=== PATIENT | male | born 1955 | race Caucasian/White ===

== ENCOUNTER 2020-10-24 08:48 | Day surgery (SDC) | payer MEDICARE, SELFPAY ==
[2020-10-24 09:28] VITALS: BP 126/57; PULSE 53; RESP 16; TEMP 36.4; O2SAT 100
[2020-10-24] MEDS: Tetracaine 0.5% 4 ML BTL OD (10:39)
[2020-10-24] MEDS: Duovisc Viscoelastic System EACH 1 EACH (10:40)
[2020-10-24] MEDS: Balanced Salt Soln.-PLUS 500 ML BAG ×2 (10:40→10:41)
[2020-10-24] MEDS: Lidocaine 1% Pres-Free 5 ML VIAL (10:43)
[2020-10-24] MEDS: Lidocaine 2% Jelly 6 ML SYR (10:45)
[2020-10-24] MEDS: Povidone-Iodine Ophth 30 ML BTL (10:46)
--- NOTE | 2020-10-24 11:02 | W.PM.DSUDISC ---
Discharge Plan Disposition Patient Disposition: HOME Condition: Good Discharge Details Attending Provider: Miles Neves Primary Care Provider: Michael Dominguez Home Meds and New Rx's Prescriptions: No Action cyanocobalamin (vitamin B-12) [Vitamin B-12] 100 mcg Tablet 100 mcg PO DAILY RF: 0 omeprazole 40 mg capsule,delayed release(DR/EC) 40 mg PO DAILY RF: 0 acetaminophen 500 mg Tablet 500 mg PO Q6H PRNRF: 0 amiloride 5 mg tablet 5 mg PO DAILY RF: 0 propranolol 20 mg tablet 20 mg PO BID RF: 0 cholecalciferol (vitamin D3) [Vitamin D3] 25 mcg (1,000 unit) Tablet 25 mcg PO DAILY RF: 0 zoledronic jyfh-wmdbbqwn-expsf 5 mg/100 mL Piggyback See Rx Instructions .ROUTE .COMPLEX RF: 0 Discharge Instructions Stand Alone Forms: Post-op Topical Cataract, Meri Rodrigues (DSU) Discharge Orders Discharge Orders: Discharge Order (Routine); Ordered 10/24/20 Ordered By: Miles Neves DS: Diagnosis Discharge Diagnosis (1) Nuclear sclerotic cataract of right eye: Status: Resolved (2) Posterior subcapsular age-related cataract, right eye: Status: Resolved
--- NOTE | 2020-10-24 11:03 | W.PM.OP ---
Operative Note Operative Note DATE OF PROCEDURE: 10/24/20 PRE-OP DIAGNOSIS: Nuclear/posterior subcapsular cataract, right eye POST-OP DIAGNOSIS: same PROCEDURE: Cataract extraction using phacoemulsification with intraocular lens implant, right eye SURGEON: Miles Neves ANESTHESIA TYPE: Local By Surgeon and MAC Refer to Anesthesia Record ESTIMATED BLOOD LOSS: 0 PATHOLOGY: none sent COMPLICATIONS: None Patient was transported to: same day Patient's condition: stable Implants: Henrry and Henrry Vision / [employer] Tecnis [id number] intraocular lens Indications: Progressive decreased vision due to cataract, right eye Procedure Description: CATARACT SURGERY OPERATIVE REPORT PREOPERATIVE DIAGNOSIS: Nuclear/posterior subcapsular cataract, right eye POSTOPERATIVE DIAGNOSIS: Same OPERATION: Cataract extraction using phacoemulsification with posterior chamber intraocular lens implant, right eye. IOL: IOL Contaminated [employer] Consultant/Model: J&J Vision / JESSEE Tecnis ZCB00 IOL Power: + 14.5 diopters IOL Serial Number: [id number] Optic Diameter: 6.0mm Haptic/Overall Diameter: 13.0mm PHACO INFO: Jaswinder [employer] Vision System with OZil and Active Fluidics Cumulative Dispersed Energy (CDE): 5.36 seconds SURGEON: Miles Neves MD, ZOLTAN ANESTHESIA: Monitored Anesthesia Care (MAC), with local sub-tenon's anesthetic infiltration COMPLICATIONS: None SPECIMENS: None INDICATIONS FOR PROCEDURE: Patient is a 64-year-old gentleman with history of diminished visual acuity in his right eye secondary to development of nuclear and posterior subcapsular cataract. He is significantly symptomatic that he desires cataract surgery and attempt to improve and maximize his vision. PROCEDURE: The correct surgical eye was identified and marked as the right eye and the pupil was dilated in the preoperative area using mydriatics and cycloplegics. The dilated pupil size was 8.0 mm. Oral sedation was administered in the form of an Imprimis MKO Melt (midazolam 3mg/ketamine 25mg/ondansetron 2mg). The patient was brought to the operating room where cardiopulmonary monitoring was instituted and surgical time-out was performed, confirming the correct operative eye and IOL power. Topical anesthesia was administered and ophthalmic povidone-iodine 5% was instilled into the conjunctival fornices. Lidocaine gel was applied to the cornea and the santos-ocular area was prepped with Betadine 10% solution and draped in the usual sterile fashion for intraocular surgery, including an aperture drape. A Tegaderm transparent film dressing was cut in half and used to cover the lashes and lid margins. Care was taken to sequester the lashes and lid margins under the Tegaderm dressing. A lid speculum was placed between the lids of the operative eye and the Maya-Shanna operating microscope was maneuvered into position. Thanh scissors were then used to make a conjunctival buttonhole approximately 6mm posterior to the limbus in the inferonasal quadrant. Blunt dissection was carried out to expose bare sclera, and a blunt-tipped sub-tenon?s anesthesia cannula was introduced and passed posteriorly along the globe where non-preserved plain lidocaine was injected into posterior sub-Tenon?s space. A sideport knife was used to make a paracentesis port inferiortemporally. Intraocular phenylephrine/lidocaine was injected into the anterior chamber. The anterior chamber was then filled with viscoelastic. A 2.4mm keratome knife was used to create a half-thickness groove at the limbus and then to construct a three-plane near-clear corneal tunnel extending 2.0mm into clear cornea in the superiortemporal position. . A flap was raised on the anterior capsule and capsulorhexis forceps were used to complete a continuous curvilinear capsulorhexis of 5.5 mm. Balanced salt solution was then used to perform cortical cleaving hydrodissection and nuclear hydrodelineation until the lens could be freely rotated within the capsular bag. The lens nucleus was then disassembled and removed within the capsular bag and iris plane using phacoemulsification. Residual cortical material was removed using the I/A handpiece. The posterior capsule was carefully polished to remove as much residual lens epithelial cells as safely possible. The capsular bag was then inflated and the anterior chamber deepened with viscoelastic. The lens implant described above was inserted into the capsular bag using the JESSEE [place] Injector. A Kuglen hook was used to dial the IOL into position. Residual viscoelastic was then removed first from posterior to the IOL, then from the anterior chamber using the I/A handpiece. The lens implant was noted to center nicely within the capsular bag. The incisions were stromally hydrated, and the anterior chamber was reformed using BSS. Then 0.5cc of moxifloxacin 1.0mg/ml were injected into the capsular bag and anterior chamber. The incisions were checked with a Weck spear and found to be secure. Several drops of ophthalmic povidone-iodine 5% were then applied to the eye followed by two drops of Imprimis combination prednisolone/moxifloxacin/nepafenac solution. The drapes were removed and a clear plastic protective eye shield was placed over the eye. The patient was then returned to Same Day Surgery in stable condition.
[2020-10-24 11:29] VITALS: BP 142/83; PULSE 55; RESP 18; TEMP 36.8; O2SAT 97
== END 2020-10-24 11:34 | disposition home or self-care (01) ==
PROVIDERS: PCP Nurse Practitioner; Visit Provider Ophthalmology
PROC: (CPT 66984; principal; 2020-10-24 11:30)
DX: H25.11 Age-related nuclear cataract, right eye (principal); H25.041 Posterior subcapsular polar age-related cataract, right eye
CPT/HCPCS: 66984; V2632

== ENCOUNTER 2020-11-07 06:57 | Day surgery (SDC) | payer MEDICARE, SELFPAY ==
--- NOTE | 2020-11-07 06:59 | W.ANESPRE ---
General Info Date of Service Date Performed: 11/07/20 Height: 5 ft 9 in Weight: 70.8 kg Body Mass Index (BMI): 23.0 Surgical Procedure: Operation Date: 11/07/20 08:40 Proposed Procedures Side Surgeon p Cataract Extraction with IOL Implant Left Miles Neves MD Meds Allergies and Home Medications Allergies Allergy/AdvReac Type Severity Reaction Status Date / Time OFELIA Inhibitors Allergy Mild Other (See Unverified 11/07/20 07:21 Comment) hepatitis B virus vaccine Allergy numbness Unverified 11/07/20 07:21 of arm Hay fever Allergy Mild Other (See Uncoded 11/07/20 07:21 Comment) Home Medication Medication Instructions Recorded acetaminophen 500 mg PO Q6H PRN 10/19/20 amiloride 5 mg PO DAILY 10/19/20 cholecalciferol (vitamin D3) 25 mcg PO DAILY 10/19/20 [Vitamin D3] cyanocobalamin (vitamin B-12) 100 mcg PO DAILY 10/19/20 [Vitamin B-12] omeprazole 40 mg PO DAILY 10/19/20 propranolol 20 mg PO BID 10/19/20 zoledronic xzhi-utyxgbyi-wpekv See Rx Instructions .ROUTE .COMPLEX 10/19/20 Current Visit Medications: Current Medications Generic Name Dose Route Start Last Admin Trade Name Freq PRN Reason Stop Dose Admin Acetaminophen 1,000 mg 11/07/20 06:00 Acetaminophen 500 Mg Tab PO Q4H PRN PRN Miscellaneous Medication 0 ml 11/07/20 06:00 Prednisolone 1%, Moxifloxacin 0.5%, Nepafenac 0.1% 5ml Btl OS DIRECTED [facility] Miscellaneous Medication 0 ml 11/07/20 06:00 Tropicam./Phenyleph. (1/2.5%) 10 Ml Btl OS DIRECTED JEREMIAH Tetracaine HCl 0 ml 11/07/20 06:00 Tetracaine 0.5% 4 Ml Btl OS DIRECTED JEREMIAH PFSH Active Problems Active Problems: Problem Status Onset Code Posterior subcapsular age-related cataract of left eye H25.042 Nuclear sclerotic cataract of left eye H25.12 Nuclear sclerotic cataract of right eye H25.11 Posterior subcapsular age-related cataract, right eye H25.041 Medical History Medical History Alcoholic cirrhosis of liver without ascites Alcoholic polyneuropathy Anxiety Cervicalgia Depression Diverticulitis Essential tremor GI bleed Hyperlipidemia Hypertension Inguinal hernia Jaundice Lung nodule Nodular basal cell carcinoma Vitamin D deficiency Surgical History Surgical History (Updated 11/07/20 @ 07:21 by Josefina Lowry) History of appendectomy History of colonoscopy History of esophagogastroduodenoscopy (EGD) Hx of cataract surgery Hx of eye surgery Right eyelid, Mohs procedure Tobacco Smoking/Tobacco Use Status: Former Tobacco Use Alcohol Alcohol Intake: former Substance Use Substance use: Occasionally Substance use type: marijuana Details: No use today; been a few days Vital Signs and Lab Results Lab Results Blood Type / Crossmatch: No Data to Display Complete Blood Count: No Data to Display Complete Metabolic Panel: No Data to Display Liver Function Panel: No Data to Display Coagulation Panel: No Data to Display Cardiac Panel: No Data to Display Arterial Blood Gas: No Data to Display Venous Blood Gas: No Data to Display Pancreas Panel: No Data to Display Thyroid Panel: No Data to Display Infectious Disease: No Data to Display Blood Cultures: No Data to Display Toxicology Panel: No Data to Display Anesthesia Assessment and Plan Anesthesia History Personal History: No History of Anesthesia Complications Family History: No Family History of Anesthesia Complications Exercise Tolerance Exercise Tolerance: Metabolic Equivalents>4 Pertinent Negatives Pertinent Negatives: No Symptoms of GERD, No Major Cardiovascular Symptoms or Complaints, No Major Pulmonary Symptoms or Complaints and No History of CVA/TIA Cardiac & Pulmonary Exam Cardiac Exam: Normal S1/S2 Heart Sounds Pulmonary Exam: Clear Bilateral Breath Sounds Airway Exam Known Difficult Airway: No Mallampati Class: 2 Mouth Opening: Normal (> 3cm) Thyromental Distance: Greater than 3 cm Neck Range of Motion: Full ROM Neck Circumference: Normal Teeth Condition: Normal Dentition ASA Classification ASA Score: ASA 3 ASA Emergency: No NPO Status NPO Status: NPO Clears >2 hours, Solids >8 hours Anesthesia Plan Anesthesia Technique: MAC Anesthesia Airway Planned: Natural Airway Monitors Used: Standard Monitors
[2020-11-07 07:25] VITALS: BP 137/90; PULSE 50; RESP 16; TEMP 36.3; O2SAT 98
[2020-11-07 07:30] VITALS: BMI 23.0
--- NOTE | 2020-11-07 07:44 | W.ANESPOSTOP ---
Postoperative Evaluation Date, Time and Location Date Performed: 11/07/20 Time Performed: 08:51 Patient Location: Day Surgery Unit Vital Signs Most Recent Imported Vital Signs: Most Recent Vital Signs Temp Pulse Resp BP Pulse Ox 36.3 C L 50 L 16 137/90 98 11/07/20 07:25 11/07/20 07:25 11/07/20 07:25 11/07/20 07:25 11/07/20 07:25 Most Recent Manually Entered Vital Signs: Adult Blood Pressure: 129/89 Heart Rate: 52 Respirations: 16 Oxygen Saturation (%): 100 Temperature (C): 36.7 C Pain Score (0-10 Scale): 0 Pain Score Most Recent Pain Score: Most Recent Pain Score Pain Level 0 11/07/20 07:25 Assessment Mental Status: Awake (Alert & Oriented to Patient Baseline) Airway and Respiratory Function: Patent airway with normal (patient baseline) respiratory exam Cardiovascular Function: Hemodynamically Stable Hydration Status: Adequately Hydrated Nausea & Vomiting: No Nausea or Vomiting Pain: Pt. Denies Any Pain Peripheral Nerve Block: Patient did not receive a nerve block
[2020-11-07] MEDS: Tetracaine 0.5% 4 ML BTL OS (08:31)
[2020-11-07] MEDS: Lidocaine 1% Pres-Free 5 ML VIAL (08:32)
[2020-11-07] MEDS: Balanced Salt Soln.-PLUS 500 ML BAG (08:35)
[2020-11-07] MEDS: Lidocaine 2% Jelly 6 ML SYR (08:35)
[2020-11-07] MEDS: Povidone-Iodine Ophth 30 ML BTL (08:36)
[2020-11-07] MEDS: Duovisc Viscoelastic System EACH 1 EACH (08:37)
--- NOTE | 2020-11-07 08:46 | ROE_ITS ---
Date of service: 11/07/20 Time of Service: 08:46 Operative Note Operative Note DATE OF PROCEDURE: 11/07/20 PRE-OP DIAGNOSIS: Nuclear/posterior subcapsular cataract, left eye POST-OP DIAGNOSIS: same PROCEDURE: Cataract extraction using phacoemulsification with intraocular lens implant, left eye SURGEON: Miles Neves ANESTHESIA TYPE: Local By Surgeon and MAC Refer to Anesthesia Record PATHOLOGY: none sent COMPLICATIONS: None Patient was transported to: same day Patient's condition: stable Implants: Henrry and Henrry Vision / [employer] Tecnis [id number] Indications: Progressive decreased vision due to cataract, left eye Procedure Description: CATARACT SURGERY OPERATIVE REPORT PREOPERATIVE DIAGNOSIS: Nuclear/posterior subcapsular cataract, left eye POSTOPERATIVE DIAGNOSIS: Same OPERATION: Cataract extraction using phacoemulsification with posterior chamber intraocular lens implant, left eye. IOL: IOL [employer] Wigs/Model: J&J Vision / JESSEE Tecnis ZCB00 IOL Power: + 15.0 diopters IOL Serial Number: [id number] Optic Diameter: 6.0mm Haptic/Overall Diameter: 13.0mm PHACO INFO: Jaswinder [employer] Vision System with OZil and Active Fluidics Cumulative Dispersed Energy (CDE): 7.56 seconds SURGEON: Miles Neves MD, ZOLTAN ANESTHESIA: Monitored Anesthesia Care (MAC), with local sub-tenon's anesthetic infiltration COMPLICATIONS: None SPECIMENS: None INDICATIONS FOR PROCEDURE: The patient is a 64-year-old gentleman with history of diminished visual acuity in both eyes secondary to the development of bilateral nuclear and posterior subcapsular cataract. He has already undergone cataract surgery in the right ey e and is doing well postoperatively. He now presents for cataract surgery in the left eye. PROCEDURE: The correct surgical eye was identified and marked as the left eye and the pupil was dilated in the preoperative area using mydriatics and cycloplegics. The dilated pupil size was 8.0 mm. Oral sedation was administered in the form of an Imprimis MKO Melt (midazolam 3mg/ketamine 25mg/ondansetron 2mg). The patient was brought to the operating room where cardiopulmonary monitoring was instituted and surgical time-out was performed, confirming the correct operative eye and IOL power. Topical anesthesia was administered and ophthalmic povidone-iodine 5% was instilled into the conjunctival fornices. Lidocaine gel was applied to the cornea and the santos-ocular area was prepped with Betadine 10% solution and draped in the usual sterile fashion for intraocular surgery, including an aperture drape. A Tegaderm transparent film dressing was cut in half and used to cover the lashes and lid margins. Care was taken to sequester the lashes and lid margins under the Tegaderm dressing. A lid speculum was placed between the lids of the operative eye and the Maya-Shanna operating microscope was maneuvered into position. Thanh scissors were then used to make a conjunctival buttonhole approximately 6mm posterior to the limbus in the inferonasal quadrant. Blunt dissection was carried out to expose bare sclera, and a blunt-tipped sub-tenon?s anesthesia cannula was introduced and passed posteriorly along the globe where non- preserved plain lidocaine was injected into posterior sub-Tenon?s space. A sideport knife was used to make a paracentesis port superior/superiortemporally. Intraocular phenylephrine/lidocaine was injected into the anterior chamber. The anterior chamber was then filled with viscoelastic. A 2.4mm keratome knife was used to create a half-thickness groove at the limbus and then to construct a three-plane near-clear corneal tunnel extending 2.0mm into clear cornea in the temporal position. . A flap was raised on the anterior capsule and capsulorhexis forceps were used to complete a continuous curvilinear capsulorhexis of 5.5 mm. Balanced salt solution was then used to perform cortical cleaving hydrodissection and nuclear hydrodelineation until the lens could be freely rotated within the capsular bag. The lens nucleus was then disassembled and removed within the capsular bag and iris plane using phacoemulsification. Residual cortical material was removed using the 45-degree angled silicone I/A tip with 0.3mm port. The posterior capsule was carefully polished to remove as much residual lens epithelial cells as safely possible. The capsular bag was then inflated and the anterior chamber deepened with viscoelastic. The lens implant described above was inserted into the capsular bag using the JESSEE [place] Injector. A Kuglen hook was used to dial the IOL into position. Residual viscoelastic was then removed first from posterior to the IOL, then from the anterior chamber using the I/A handpiece. The lens implant was noted to center nicely within the capsular bag. The incisions were stromally hydrated, and the anterior chamber was reformed using BSS. Then 0.5cc of moxifloxacin 1.0mg/ml were injected into the capsular bag and anterior chamber. The incisions were checked with a Weck spear and found to be secure. Several drops of ophthalmic povidone-iodine 5% were then applied to the eye followed by two drops of Imprimis combination prednisolone/moxifloxacin/nepafenac solution. The drapes were removed and a clear plastic protective eye shield was placed over the eye. The patient was then returned to Same Day Surgery in stable condition.
[2020-11-07 08:53] VITALS: BP 129/89; PULSE 52; RESP 16; TEMPC 36.7; O2SAT 100
[2020-11-07 09:12] VITALS: BP 129/71; PULSE 55; RESP 16; TEMP 36.7; O2SAT 99
== END 2020-11-07 09:45 | disposition home or self-care (01) ==
LOC: SUR 06:58
PROVIDERS: PCP Nurse Practitioner; Visit Provider Ophthalmology
PROC: (CPT 66984; principal; 2020-11-07 08:30)
DX: H25.12 Age-related nuclear cataract, left eye (principal); H25.042 Posterior subcapsular polar age-related cataract, left eye; Z98.41 Cataract extraction status, right eye; Z96.1 Presence of intraocular lens
CPT/HCPCS: 66984; V2632